=== PATIENT | female | born 1940 | race Caucasian/White ===

== ENCOUNTER 2016-09-07 12:17 | Emergency (ER) | payer MEDICARE ==
[~2016-09-07] VITALS: Ht 154.9 cm; Wt 54.4 kg
[~2016-09-07 12:17] MED LIST: ASPI-496 PO; CALC1CAP8 PO; CHOL200024 PO; LEVO100T5 PO; MECL25TA4 PO; VITA1TAB3 PO
[2016-09-07] MEDS ORDERED: SODIUM CHLORIDE 0.9% 1,000ML IVBOLUS ONE (13:00)
[2016-09-07 13:19] LABS: HEMOGLOBIN 13.5 g/dL (11.7-16.4)
[2016-09-07 13:32] LABS: ASPARTATE AMINO TRANSFERASE 23 U/L (15-37); BLOOD UREA NITROGEN 18 mg/dL (7-18)
[2016-09-07 13:58] VITALS: BP 114/60
== END 2016-09-07 14:57 | disposition home or self-care (01) ==
LOC: ED 14:51
DX: R55 Syncope and collapse (principal); S00.93XA Contusion of unspecified part of head, initial encounter; E03.4 Atrophy of thyroid (acquired); W18.30XA Fall on same level, unspecified, initial encounter; Y93.89 Activity, other specified; Y99.8 Other external cause status; Y92.009 Unspecified place in unspecified non-institutional (private) residence as the place of occurrence of the external cause
CPT/HCPCS: 36415; 70450; 80053; 84439; 84443; 85025; 93005; 96360; 96361; 99285; J7030

== ENCOUNTER 2016-10-26 15:53 | Emergency (ER) | payer MEDICARE ==
[~2016-10-26] VITALS: Ht 154.9 cm; Wt 55.0 kg
[2016-10-26 16:06] VITALS: BP 119/73
[2016-10-26] MEDS ORDERED: FLUORESCEIN OPHTHALMIC 1 MG STRIP EACHEYE ONE (16:30)
[2016-10-26] MEDS ORDERED: PROPARACAINE OPHTH 0.5%, 15ML EACHEYE ONE (16:30)
[2016-10-26] MEDS ORDERED: FLUORESCEIN OPHTHALMIC 1 MG STRIP ONE (16:33)
[2016-10-26] MEDS ORDERED: PROPARACAINE OPHTH 0.5%, 15ML ONE (16:33)
== END 2016-10-26 18:06 | disposition home or self-care (01) ==
LOC: ED 17:35
DX: H57.11 Ocular pain, right eye (principal); E03.9 Hypothyroidism, unspecified; Z90.710 Acquired absence of both cervix and uterus
CPT/HCPCS: 70480

== ENCOUNTER 2017-01-13 10:37 | Emergency (ER) | payer MEDICARE ==
[~2017-01-13] VITALS: Ht 152.4 cm; Wt 54.9 kg
[2017-01-13 10:38] VITALS: BP 128/77
== END 2017-01-13 13:00 | disposition home or self-care (01) ==
LOC: ED 12:20
DX: Z48.00 Encounter for change or removal of nonsurgical wound dressing (principal)
CPT/HCPCS: 99281

== ENCOUNTER → 2017-01-24 | Outpatient (CLI) | payer MEDICARE | END | disposition home or self-care (01) | LOC: CFH 12:53 | PROVIDERS: ATTEND Family Medicine | DX: Z12.31 Encounter for screening mammogram for malignant neoplasm of breast (principal) | CPT/HCPCS: G0202 ==

== ENCOUNTER → 2017-08-25 | Outpatient (CLI) | payer MEDICARE ==
[~2017-08-25] MED LIST changes: +NORT25CA PO
== END | disposition home or self-care (01) ==
LOC: CFH 14:18
PROVIDERS: ATTEND Family Medicine
DX: M16.0 Bilateral primary osteoarthritis of hip (principal)
CPT/HCPCS: 73523